=== PATIENT | female | born 1950 | race Caucasian/White ===

== ENCOUNTER → 2023-12-11 | Outpatient (CLI) | payer MEDICARE, OTHER, SELFPAY ==
--- NOTE | 2023-12-11 18:22 | DI.NM.S_ITS ---
DATE OF SERVICE: 12/11/2023 EXERCISE PERFUSION STUDY INDICATIONS: Underlying history of SVT, diabetes, HTN, hyperlipidemia. RADIOPHARMACEUTICAL: 26 millicuries technetium-99m Myoview IV was at stress and 12.4 millicuries technetium-99m Myoview IV was injected at rest. CARDIAC STRESS: Initially the patient attempted walking on a treadmill. She walked on Shivam protocol for 3 minutes and 20 seconds, achieved only maximum heart rate of 109, which was 73% of target heart rate. Had atypical chest pain. Also had shortness of breath. Unable to walk on treadmill. Test was converted to pharmacological stress test. The patient received IV Lexiscan as per protocol. Baseline rhythm sinus. During stress no convincing ischemic changes seen either on exercise or Lexiscan. No significant arrhythmias other than rare PACs. Maximum blood pressure during exercise 162/80 mmHg. CONSTANZA positive 39%. RAW DATA: There is an adequate myocardial uptake. There is increased subdiaphragmatic activity. GATED STUDY: Resting LV ejection fraction 74% and stress LV ejection fraction 86% without any obvious wall motion abnormalities. Resting end- diastolic volume 96 mL. TID ratio 0.73 which is within normal limits. Lung/heart ratio 0.25, which is within normal limits. MYOCARDIAL PERFUSION SCAN: Stress supine, resting supine and stress prone images were compared to each other. Resting supine images revealed small size, mildly decreased perfusion of distal anterior wall, however, stress supine and stress prone images revealed normal myocardial perfusion. CONCLUSION: This is a normal myocardial perfusion study. No obvious convincing ischemia or infarction pattern seen. Preserved LV function. Diminished exercise tolerance. The patient could not walk on treadmill for longer duration. There was submaximal exercise stress test response, hence received IV Lexiscan. Overall, low-risk myocardial perfusion scan. Lisbeth Park - [employer]/fiona/AY doc#: [id number]/job#: [id number] dd: 12/11/2023 16:54:00 dt: 12/11/2023 18:09:00 DICTATING MD/COPIES TO: Lexis Goddard MD COPIES MNE: KENDALL;
== END ==
PROVIDERS: PCP Physician Assistant Medical; Referring Provider Physician Assistant Medical; Visit Provider Physician Assistant Medical
DX: I10 Essential (primary) hypertension (principal); I47.10 Supraventricular tachycardia, unspecified; E78.5 Hyperlipidemia, unspecified; E11.9 Type 2 diabetes mellitus without complications
CPT/HCPCS: 78452; 93017; A9502; J2785